=== PATIENT | female | born 2000 | race Two or more races ===

== ENCOUNTER 2023-05-15 09:21 | Emergency (ER) | payer OTHER ==
[~2023-05-15] VITALS: Ht 165.1 cm; Wt 24.5 kg
[2023-05-15 09:39] VITALS: BP 118/72; TEMP 98.1; O2SAT 98
[2023-05-15] MEDS ORDERED: predniSONE 50 MG TABLET PO ONE (10:00)
[2023-05-15] MEDS ORDERED: predniSONE 20 MG TABLET ONE (10:17)
== END 2023-05-15 10:31 | disposition home or self-care (01) ==
LOC: ER 09:31
DX: L50.9 Urticaria, unspecified (principal)
CPT/HCPCS: 99283; J7512